=== PATIENT | female | born 1955 | race African-American/Black ===

== ENCOUNTER 2018-06-13 16:25 | Emergency (ER) | payer MEDICAID ==
[~2018-06-13] VITALS: Ht 162.6 cm; Wt 70.3 kg
[2018-06-13 16:45] VITALS: BP 153/56
--- NOTE | 2018-06-13 16:51 | NUR ---
PT AMBULATES BACK TO THE LOBBY WITH DAUGHTER
--- NOTE | 2018-06-13 17:09 | NUR ---
PT LWBS PER ADMITTING
== END 2018-06-13 17:09 | disposition left against medical advice (07) ==
LOC: MED 16:25
DX: M25.572 Pain in left ankle and joints of left foot (principal); Z53.21 Procedure and treatment not carried out due to patient leaving prior to being seen by health care provider

== ENCOUNTER 2018-06-14 12:33 | Emergency (ER) | payer MEDICAID ==
[~2018-06-14] VITALS: Ht 157.5 cm; Wt 68.0 kg
[2018-06-14 12:54] VITALS: BP 152/58
[2018-06-14 15:02] VITALS: BP 152/57
== END 2018-06-14 15:03 | disposition home or self-care (01) ==
LOC: MED 12:33
DX: I83.023 Varicose veins of left lower extremity with ulcer of ankle (principal); L97.329 Non-pressure chronic ulcer of left ankle with unspecified severity; K21.9 Gastro-esophageal reflux disease without esophagitis; I10 Essential (primary) hypertension; F17.210 Nicotine dependence, cigarettes, uncomplicated; Z86.73 Personal history of transient ischemic attack (TIA), and cerebral infarction without residual deficits; Z86.2 Personal history of diseases of the blood and blood-forming organs and certain disorders involving the immune mechanism
CPT/HCPCS: 73610; 90471; 90715; 99283

== ENCOUNTER 2018-06-28 15:51 | Inpatient (IN) | payer MEDICAID ==
[~2018-06-28] VITALS: Ht 165.1 cm; Wt 70.3 kg
[2018-06-28 15:55] VITALS: BP 181/72
[2018-06-28] MEDS ORDERED: NACL 0.9% 1,000 ML IV ONE (17:32)
[2018-06-28] MEDS ORDERED: VANCOMYCIN 1,000 MG in DEXTROSE 5% 250 ML IV ONE (17:35)
[2018-06-28] MEDS ORDERED: VANCOMYCIN 1,000 MG VIAL ONE (18:09)
[2018-06-28 18:10] LABS: BASOPHILS # (AUTO) 0.1 K/uL (0.00-0.22); BASOPHILS % (AUTO) 0.5 % (0.0-2.0); EOSINOPHILS # (AUTO) 0.3 K/uL (0-0.4); EOSINOPHILS % (AUTO) 2.4 % (0.0-4.0); HEMATOCRIT 29.7 % (36-48); HEMOGLOBIN 9.3 g/dL (12.0-16.0); LYMPHOCYTES # (AUTO) 2.7 K/uL (2.5-16.5); LYMPHOCYTES % (AUTO) 21.7 % (20.5-51.1); MEAN CORPUSCULAR HEMOGLOBIN 30 pg (27-31); MEAN CORPUSCULAR HGB CONC 32 g/dL (33-37); MEAN CORPUSCULAR VOLUME 95.1 fL (80-94); MONOCYTES # (AUTO) 0.9 K/uL (0.8-1.0); NEUTROPHILS # (AUTO) 8.5 K/uL (1.8-7.7); NEUTROPHILS % (AUTO) 68.4 % (42.2-75.2); PLATELET COUNT (AUTO) 553 K/uL (140-450); RED BLOOD CELL COUNT(AUTO) 3.12 MIL/uL (4.20-5.40); RED CELL DISTRIBUTION WIDTH 16.1 % (11.6-13.7); WHITE BLOOD COUNT (AUTO) 12.4 K/uL (4.8-10.8)
[2018-06-28 18:29] LABS: ANION GAP 10.1 (8-16); CARBON DIOXIDE 27.2 mmol/L (21-32); CREATININE 1.2 mg/dL (0.6-1.3); POTASSIUM 4.3 mmol/L (3.5-5.1)
[2018-06-28 18:32] LABS: PROTHROMBIN TIME 8.6 secs (10.8-13.4)
[2018-06-28 18:43] LABS: ALBUMIN 3.3 g/dL (3.4-5.0); TOTAL BILIRUBIN 0.3 mg/dL (0.0-1.0)
[2018-06-28 19:12] LABS: APPEARANCE,URINE CLEAR (CLEAR); BILIRUBIN,URINE NEGATIVE (NEGATIVE); BLOOD, URINE TRACE-I (NEGATIVE); COLOR,URINE YELLOW (YELLOW); LEUKOCYTE ESTERASE ,URINE NEGATIVE (NEGATIVE); NITRITE, URINE NEGATIVE (NEGATIVE); UGLUCOSE NEGATIVE (NEGATIVE)
[2018-06-28] MEDS: DEXT 5% /NACL 0.9% 1,000 ML IV SCH ×2 (20:14→23:50)
[2018-06-28] MEDS ORDERED: DOCUSATE SODIUM 100 MG GELCAP PO PRN (20:15)
[2018-06-28] MEDS ORDERED: ONDANSETRON 4 MG/2 ML VIAL IM/IVP PRN (20:15)
[2018-06-28 20:54] LABS: CHOL/HDL RATIO 6.4 (1-4.5); FREE T4 (FREE THYROXINE) 0.84 ng/dL (0.76-1.46); PHOSPHORUS 3.1 mg/dL (2.5-4.9); THYROID STIMULATING HORMONE 2.64 uIU/mL (0.34-3.74)
[2018-06-28 21:00] VITALS: BP 186/57
[2018-06-28 21:07] LABS: BARBITURATE, URINE NEG. ng/ml (NEG <=200); BENZODIAZEPINE, URINE NEG. ng/mL (NEG <=200); CANNABINOID, URINE NEG. ng/mL (NEG <=50); COCAINE, URINE NEG. ng/mL (NEG <=300); OPIATE, URINE NEG. ng/mL (NEG <=2000); PHENCYCLIDINE SCREEN,URINE NEG. ng/mL (NEG <=25)
[2018-06-28] MEDS ORDERED: LISINOPRIL 20 MG TAB PO SCH (21:40)
[2018-06-28] MEDS ORDERED: FUROSEMIDE 100 MG/10 ML VIAL IV SCH (22:05)
[2018-06-28] MEDS ORDERED: methylPREDNISolone SS 125 MG/2 ML VIAL IVP ONE (22:15)
[2018-06-28] MEDS ORDERED: ALBUTEROL SULFATE/IPRATROPIU 3 ML SOL IH PRN (22:15)
[2018-06-28] MEDS ORDERED: ceFAZolin 1,000 MG VIAL ONE (23:44)
[2018-06-29] VITALS: BP 107/50
[2018-06-29] MEDS: ALBUTEROL SULFATE/IPRATROPIU 3 ML SOL IH SCH ×4 (00:25→19:39)
[2018-06-29] MEDS ORDERED: ceFAZolin 1,000 MG VIAL ONE (05:25)
[2018-06-29] MEDS: ACETAMINOPHEN 325 MG TAB PO PRN ×2 (05:29→16:32)
[2018-06-29] MEDS: methylPREDNISolone SS 125 MG/2 ML VIAL IVP SCH ×2 (05:38→13:00)
[2018-06-29] MEDS ORDERED: methylPREDNISolone SS 125 MG/2 ML VIAL ONE (05:42)
[2018-06-29 08:00] VITALS: BP 174/59
[2018-06-29 08:03] LABS: BASOPHILS % (AUTO) 0.3 % (0.0-2.0); HEMATOCRIT 28.7 % (36-48); HEMOGLOBIN 9.3 g/dL (12.0-16.0); LYMPHOCYTES # (AUTO) 0.4 K/uL (2.5-16.5); LYMPHOCYTES % (AUTO) 4.4 % (20.5-51.1); MEAN CORPUSCULAR HEMOGLOBIN 30 pg (27-31); MEAN CORPUSCULAR HGB CONC 33 g/dL (33-37); MEAN CORPUSCULAR VOLUME 93.6 fL (80-94); MONOCYTES % (AUTO) 0.5 % (1.7-9.3); NEUTROPHILS # (AUTO) 8.5 K/uL (1.8-7.7); NEUTROPHILS % (AUTO) 94.8 % (42.2-75.2); PLATELET COUNT (AUTO) 542 K/uL (140-450); RED BLOOD CELL COUNT(AUTO) 3.06 MIL/uL (4.20-5.40); RED CELL DISTRIBUTION WIDTH 16.3 % (11.6-13.7)
[2018-06-29 08:13] LABS: ANION GAP 15.7 (8-16); CARBON DIOXIDE 22.2 mmol/L (21-32); CREATININE 1.1 mg/dL (0.6-1.3); POTASSIUM 3.9 mmol/L (3.5-5.1)
[2018-06-29] MEDS: METOPROLOL 25 MG TAB PO SCH ×2 (08:44→21:56)
[2018-06-29] MEDS: PANTOPRAZOLE 40 MG TABEC PO SCH (08:44)
[2018-06-29] MEDS: ASPIRIN 81 MG TAB.CHEW PO SCH (08:44)
[2018-06-29] MEDS: NICOTINE TRANSD SYS 14 MG/24 HR PATCH TD SCH (08:54)
[2018-06-29] MEDS ORDERED: LISINOPRIL 5 MG TAB PO SCH (09:00)
[2018-06-29 11:12] LABS: MAGNESIUM 2.1 mg/dL (1.8-2.4); PHOSPHORUS 3.2 mg/dL (2.5-4.9)
[2018-06-29 12:00] VITALS: BP 173/56
[2018-06-29] MEDS: DEXT 5% /NACL 0.9% 1,000 ML IV SCH (12:54)
[2018-06-29] MEDS: CEFAZOLIN SODIUM 1 GM/D5W PM 50 ML IV SCH ×2 (13:00→21:57)
[2018-06-29] MEDS ORDERED: LISINOPRIL 20 MG TAB PO SCH (14:30)
[2018-06-29 16:00] VITALS: BP 112/55
[2018-06-29] MEDS: ATORVASTATIN 20 MG TAB PO SCH (16:31)
[2018-06-29] MEDS ORDERED: METOPROLOL 25 MG TAB PO SCH (21:00)
[2018-06-29] MEDS: HYDROcodone/APAP 7.5/325 MG 1 TAB PO PRN (21:48)
[2018-06-29] MEDS: methylPREDNISolone SS 40 MG/ML VIAL IVP SCH (23:06)
[2018-06-29] MEDS ORDERED: methylPREDNISolone SS 40 MG/ML VIAL ONE (23:10)
[2018-06-30] VITALS: BP 160/48
[2018-06-30] MEDS: ALBUTEROL SULFATE/IPRATROPIU 3 ML SOL IH SCH ×4 (01:00→19:13)
[2018-06-30] MEDS: CEFAZOLIN SODIUM 1 GM/D5W PM 50 ML IV SCH ×3 (04:58→21:24)
[2018-06-30] MEDS: methylPREDNISolone SS 40 MG/ML VIAL IVP SCH ×2 (05:05→12:12)
[2018-06-30] MEDS ORDERED: METOPROLOL 25 MG TAB PO ONE (05:25)
[2018-06-30] MEDS ORDERED: DEXTROSE 50% 50 ML SYR IVP PRN (05:45)
[2018-06-30] MEDS: BLOOD GLUCOSE MONITORING 1 DEV DEV FS SCH ×4 (06:12→21:10)
[2018-06-30] MEDS: INSULIN LISPRO SLIDING SCALE 100 UNITS/ML VIAL SUBQ PRN ×4 (06:14→21:12)
[2018-06-30 06:46] LABS: T4 (THYROXINE) 5.3 ug/dL (4.5-12.0)
[2018-06-30] MEDS ORDERED: BLOOD GLUCOSE MONITORING 1 DEV DEV FS SCH (07:30)
[2018-06-30 08:00] VITALS: BP 144/54
[2018-06-30] MEDS: NICOTINE TRANSD SYS 14 MG/24 HR PATCH TD SCH (08:59)
[2018-06-30] MEDS: ASPIRIN 81 MG TAB.CHEW PO SCH (09:00)
[2018-06-30] MEDS ORDERED: LISINOPRIL 5 MG TAB PO SCH (09:00)
[2018-06-30] MEDS: PANTOPRAZOLE 40 MG TABEC PO SCH (09:00)
[2018-06-30] MEDS ORDERED: THERAHONEY GEL 42.5 GM TP SCH (09:00)
[2018-06-30] MEDS: METOPROLOL 25 MG TAB PO SCH ×2 (09:01→16:08)
[2018-06-30] MEDS ORDERED: hydrALAZINE 20 MG/ML VIAL IVP SCH (11:50)
[2018-06-30 12:00] VITALS: BP 180/62
[2018-06-30 12:13] LABS: FOLIC ACID 4.6 ng/mL (>3.0)
[2018-06-30] MEDS ORDERED: LISINOPRIL 20 MG TAB PO SCH (13:18)
[2018-06-30 16:00] VITALS: BP 170/60
[2018-06-30] MEDS: ATORVASTATIN 20 MG TAB PO SCH (16:08)
[2018-06-30] MEDS ORDERED: hydrALAZINE 20 MG/ML VIAL IVP PRN (23:10)
[2018-06-30] MEDS ORDERED: METOPROLOL SUCCINATE 50 MG TABER PO ONE (23:10)
[2018-06-30] MEDS ORDERED: hydrALAZINE 10 MG TAB ONE (23:40)
[2018-07-01 01:00] VITALS: BP 202/69
[2018-07-01] MEDS: HYDROcodone/APAP 7.5/325 MG 1 TAB PO PRN (01:10)
[2018-07-01] MEDS: ALBUTEROL SULFATE/IPRATROPIU 3 ML SOL IH SCH ×2 (01:17→07:00)
[2018-07-01] MEDS: CEFAZOLIN SODIUM 1 GM/D5W PM 50 ML IV SCH (04:52)
[2018-07-01] MEDS: BLOOD GLUCOSE MONITORING 1 DEV DEV FS SCH (05:12)
[2018-07-01 06:55] VITALS: BP 167/65
[2018-07-01] MEDS ORDERED: METOPROLOL 25 MG TAB PO SCH ×3 (07:00→09:00)
== END 2018-07-01 07:40 | disposition left against medical advice (07) | DRG 133 ==
LOC: MED 15:51 → MTU 20:14
PROVIDERS: ADMIT General Practice; ATTEND General Practice
DX: J96.00 Acute respiratory failure, unspecified whether with hypoxia or hypercapnia (principal); I50.41 Acute combined systolic (congestive) and diastolic (congestive) heart failure; I77.2 Rupture of artery; D68.59 Other primary thrombophilia; E44.1 Mild protein-calorie malnutrition; E87.1 Hypo-osmolality and hyponatremia; I73.9 Peripheral vascular disease, unspecified; I11.0 Hypertensive heart disease with heart failure; L97.929 Non-pressure chronic ulcer of unspecified part of left lower leg with unspecified severity; R73.03 Prediabetes; Z53.21 Procedure and treatment not carried out due to patient leaving prior to being seen by health care provider; J44.9 Chronic obstructive pulmonary disease, unspecified; D64.9 Anemia, unspecified; R31.9 Hematuria, unspecified; F17.200 Nicotine dependence, unspecified, uncomplicated; I99.8 Other disorder of circulatory system; F43.9 Reaction to severe stress, unspecified; E78.2 Mixed hyperlipidemia; K21.9 Gastro-esophageal reflux disease without esophagitis; Z68.25 Body mass index [BMI] 25.0-25.9, adult; Z86.73 Personal history of transient ischemic attack (TIA), and cerebral infarction without residual deficits; Z90.49 Acquired absence of other specified parts of digestive tract; Z90.710 Acquired absence of both cervix and uterus; Z98.51 Tubal ligation status; Z83.3 Family history of diabetes mellitus; Z82.3 Family history of stroke; Z71.6 Tobacco abuse counseling
CPT/HCPCS: 36415; 36600; 71045; 71275; 73590; 80048; 80053; 80305; 81003; 82150; 82607; 82728; 82746; 82803; 82948; 83036; 83540; 83605; 83690; 83735; 83880; 84100; 84436; 84439; 84443; 84479; 84484; 85025; 85045; 85379; 85610; 85730; 87040; 87070; 87081; 87086; 87205; 93925; 93970; 94640; 96365; 96366; 99285; J0360; J0690; J1644; J1815; J2920; J2930; J3370; J7042; J7060; J7620; Q0092; Q9967

== ENCOUNTER 2021-11-17 16:20 | Inpatient (IN) | payer MEDICAID, MEDICARE ==
[~2021-11-17] VITALS: Ht 162.6 cm; Wt 64.9 kg
--- NOTE | 2021-11-17 16:21 | NUR ---
DEB ADAMS VIA GURNEY TO BED 02.
[2021-11-17 16:35] VITALS: BP 90/35
--- NOTE | 2021-11-17 16:43 | NUR ---
66 Y/O FEMALE BIBA FROM HOME C/O GENEREAL WEAKNESS S/P LEAVING CLINIC. PER FIRE CLINIC STATED PT HAD LOW BS, GIVEN COOKIES AND APPLESAUCE. ON ARRIVAL TO PT HOME PT SHAKY AND GENERAL WEAKNESS , BS 330 ATTEMPTED TO START AN IV FOR NS BOLUS BUT WERE UNSUCCESSFUL. PT STATES +N/-V. DENIES FEVER/CHILLS. ON ARRIVAL PT BS 238. PT IS A&OX3, GCS15. PMH: DM, HTN NKA
[2021-11-17] MEDS ORDERED: ONDANSETRON 4 MG/2 ML VIAL IVP ONE (16:45)
[2021-11-17] MEDS ORDERED: NACL 0.9% 1,000 ML IV SCH (16:45)
[2021-11-17] MEDS ORDERED: cefTRIAXone 1,000 MG in DEXT 5% MINI-BAG PLUS 50 ML IV ONE (16:45)
--- NOTE | 2021-11-17 16:56 | NUR ---
SENIOR MARKETING ASSOCIATE AT PT BEDSIDE.
--- NOTE | 2021-11-17 16:56 | NUR ---
DR. VINES AT PT BEDSIDE FOR FURTHER EVALUATION.
--- NOTE | 2021-11-17 17:00 | NUR ---
LANNY DICKENS GAVE TO RN COMPLIANCE AT PT BEDSIDE.
[2021-11-17] MEDS ORDERED: cefTRIAXone 1,000 MG VIAL ONE (17:15)
[2021-11-17 17:18] LABS: BASOPHILS % (AUTO) 0.4 % (0.0-2.0); EOSINOPHILS % (AUTO) 0.1 % (0.0-4.0); HEMATOCRIT 25.2 % (36-48); HEMOGLOBIN 8.1 g/dL (12.0-16.0); LYMPHOCYTES # (AUTO) 0.3 K/uL (2.5-16.5); LYMPHOCYTES % (AUTO) 4.1 % (20.5-51.1); MEAN CORPUSCULAR HEMOGLOBIN 30 pg (27-31); MEAN CORPUSCULAR HGB CONC 32 g/dL (33-37); MEAN CORPUSCULAR VOLUME 94.8 fL (80-94); MONOCYTES # (AUTO) 0.5 K/uL (0.8-1.0); MONOCYTES % (AUTO) 5.9 % (1.7-9.3); NEUTROPHILS # (AUTO) 7.1 K/uL (1.8-7.7); NEUTROPHILS % (AUTO) 89.5 % (42.2-75.2); PLATELET COUNT (AUTO) 461 K/uL (140-450); RED BLOOD CELL COUNT(AUTO) 2.66 MIL/uL (4.20-5.40); RED CELL DISTRIBUTION WIDTH 15.2 % (11.6-13.7); WHITE BLOOD COUNT (AUTO) 7.9 K/uL (4.8-10.8)
--- NOTE | 2021-11-17 17:35 | NUR ---
PT TAKEN TO CT VIA RVINH.
[2021-11-17 17:40] LABS: ALBUMIN 3.5 g/dL (3.4-5.0); POTASSIUM 3.3 mmol/L (3.5-5.1); TOTAL BILIRUBIN 0.2 mg/dL (0.0-1.0)
[2021-11-17 17:46] LABS: ANION GAP 17.9 (8-16); CARBON DIOXIDE 16.4 mmol/L (21-32)
--- NOTE | 2021-11-17 18:20 | NUR ---
Patient will be admitted to care of DR. CUELLAR. Admited to TELE. Will go to room 125A. Belongings list completed. Report to GEORGI TAFOYA AT PT BEDSIDE.
--- NOTE | 2021-11-17 18:31 | NUR ---
PT SPO2 88% ON RA, PLACED ON 2LNC, SPO2 100%. WILL CONTINUE TO MONITOR.
[2021-11-17] MEDS ORDERED: DOCUSATE SODIUM 100 MG GELCAP PO PRN (18:35)
[2021-11-17] MEDS ORDERED: DEXTROSE 50% 50 ML SYR IVP PRN (18:35)
[2021-11-17] MEDS ORDERED: HYDROcodone/APAP 7.5/325 MG 1 TAB PO PRN (18:35)
[2021-11-17] MEDS ORDERED: ZOLPIDEM 5 MG TAB PO PRN (18:35)
[2021-11-17] MEDS ORDERED: ACETAMINOPHEN 325 MG TAB PO PRN (18:35)
[2021-11-17] MEDS ORDERED: INSULIN LISPRO SLIDING SCALE 100 UNITS/ML VIAL SUBQ PRN (18:35)
[2021-11-17] MEDS ORDERED: guaiFENesin DM 200/20 MG-10 ML 10 ML UDC PO PRN (18:35)
[2021-11-17] MEDS ORDERED: ONDANSETRON 4 MG/2 ML VIAL IM/IVP PRN (18:35)
[2021-11-17] MEDS ORDERED: POTASSIUM CHLORIDE 10 MEQ TABER PO PRN (18:35)
[2021-11-17] MEDS ORDERED: ASPIRIN 325 MG TAB PO SCH (19:00)
[2021-11-17] MEDS ORDERED: POTASSIUM CHLORIDE 10 MEQ TABER PO SCH (19:00)
--- NOTE | 2021-11-17 19:00 | NUR ---
RECEIVED PATIENT ENDORSEMENT FROM DAY SHIFT NURSE FOR CONTINUITY OF CARE. PATIENT ADMITTED TO THE UNIT AT 1900. AWAKE, ALERT AND CONFUSED, SHE IS VERBALLY RESPONSIVE. GENERAL BODY WEAKNESS PRESENT. PATIENT TRANSPORTED VIA GURNEY. PATIENT IS VERBALLY RESPONSIVE.
--- NOTE | 2021-11-17 19:03 | NUR ---
BEDSIDE REPORT GIVEN TO LOTTIE GRAVES.
[2021-11-17 19:13] LABS: PROTHROMBIN TIME 10.7 secs (10.8-13.4)
[2021-11-17 19:18] LABS: APPEARANCE,URINE CLEAR (CLEAR); BILIRUBIN,URINE 1+ (NEGATIVE); BLOOD, URINE NEGATIVE (NEGATIVE); COLOR,URINE YELLOW (YELLOW); LEUKOCYTE ESTERASE ,URINE NEGATIVE (NEGATIVE); NITRITE, URINE NEGATIVE (NEGATIVE); PH,URINE 5.5 (5.0-9.0); UGLUCOSE NEGATIVE (NEGATIVE)
--- NOTE | 2021-11-17 19:20 | NUR ---
RECEIVED PATIENT AT 1905 PATIENT IS AOX4 VITALS STABLE: 135/61 HR68 100% ON ROOM AIR, T97.7, RR18 ORIENTED TO ROOM, CALL LIGHT WITHIN REACH WILL ENDORSE TO NIGHT RN.
[2021-11-17 19:31] LABS: CHOL/HDL RATIO 2.2 (1-4.5); FREE T4 (FREE THYROXINE) 0.94 ng/dL (0.76-1.46); MAGNESIUM 2.6 mg/dL (1.8-2.4); PHOSPHORUS 4.4 mg/dL (2.5-4.9)
[2021-11-17 19:54] LABS: THYROID STIMULATING HORMONE 4.36 uIU/mL (0.34-3.74)
[2021-11-17] MEDS: NACL 0.9% 1,000 ML IV SCH (20:55)
[2021-11-17] MEDS: BLOOD GLUCOSE MONITORING 1 DEV DEV FS SCH (21:20)
--- NOTE | 2021-11-17 22:00 | NUR ---
PATIENT BLOOD SUGAR IS 84.
--- NOTE | 2021-11-18 02:13 | NUR ---
PER LAB STAFF THEY SAVED THE URINE SPECIMEN - PER LAB THEY WILL DO URINE DRUG TEST FROM SAVED URINE SPECIMEN . - WILL ENDORSE .
[2021-11-18 02:38] LABS: BARBITURATE, URINE NEGATIVE ng/ml (NEG <=200); BENZODIAZEPINE, URINE NEGATIVE ng/mL (NEG <=200); CANNABINOID, URINE NEGATIVE ng/mL (NEG <=50); COCAINE, URINE NEGATIVE ng/mL (NEG <=300); OPIATE, URINE NEGATIVE ng/mL (NEG <=2000); PHENCYCLIDINE SCREEN,URINE NEGATIVE ng/mL (NEG <=25)
[2021-11-18 04:00] VITALS: BP 118/54
[2021-11-18 05:39] LABS: ANION GAP 10.5 (8-16); CREATININE 2.2 mg/dL (0.6-1.3); POTASSIUM 4.5 mmol/L (3.5-5.1)
[2021-11-18 06:22] LABS: BASOPHILS % (AUTO) 0.5 % (0.0-2.0); EOSINOPHILS # (AUTO) 0.1 K/uL (0-0.4); EOSINOPHILS % (AUTO) 1.4 % (0.0-4.0); HEMATOCRIT 21.6 % (36-48); LYMPHOCYTES # (AUTO) 1.4 K/uL (2.5-16.5); LYMPHOCYTES % (AUTO) 18.9 % (20.5-51.1); MEAN CORPUSCULAR HEMOGLOBIN 30 pg (27-31); MEAN CORPUSCULAR HGB CONC 33 g/dL (33-37); MEAN CORPUSCULAR VOLUME 92.7 fL (80-94); MONOCYTES # (AUTO) 0.6 K/uL (0.8-1.0); MONOCYTES % (AUTO) 8.3 % (1.7-9.3); NEUTROPHILS # (AUTO) 5.2 K/uL (1.8-7.7); NEUTROPHILS % (AUTO) 70.9 % (42.2-75.2); PLATELET COUNT (AUTO) 417 K/uL (140-450); RED BLOOD CELL COUNT(AUTO) 2.33 MIL/uL (4.20-5.40); RED CELL DISTRIBUTION WIDTH 14.7 % (11.6-13.7); WHITE BLOOD COUNT (AUTO) 7.3 K/uL (4.8-10.8)
--- NOTE | 2021-11-18 06:43 | NUR ---
PATIENT HAS BEEN SCREENED AND CATEGORIZED LOW NUTRITION RISK. PATIENT WILL BE SEEN WITHIN 7 DAYS OF ADMISSION. 11/24/[address] Addendum: 11/18/21 at [address] REFERRAL RECEIVED NOT APPLICABLE
--- NOTE | 2021-11-18 06:50 | NUR ---
PATIENT BLOOD SUGAR IS 83.
--- NOTE | 2021-11-18 07:20 | NUR ---
PATIENT IS ASLEEP BUT AROUSABLE ON STIMULI. PATIENT IS ON STABLE CONDITION. IV SALINE LOCK IS ON RIGHT AC, INTACT AND PATENT. NORMAL SALINE IS INFUSING WELL, NO SIGN/SYMPTOM OF INFECTION ON IV SITE. ENDORSED TO DAY SHIFT NURSE FOR CONTINUITY OF CARE. PATIENT REMOVED O2 NASAL CANNULA, O2 SAT STABLE AT 98-99% AT ROOM AIR.
--- NOTE | 2021-11-18 07:30 | NUR ---
RECEIVED BEDSIDE REPORT FROM NIGHT RN FOR CONTINUITY OF CARE. PT SUPINE IN THE BED, EYES CLOSED, AROUSABLE TO NAME, AAOX2. ON ROOM AIR, SPO2 AT 98%. SR ON TELE MONITOR. S1&2 HEART SOUNDS. INCONTINENT OF BOWEL AND BLADDER. BOWEL SOUNDS ACTIVE. GENERALIZED WEAKNESS. SKIN INTACT. 24G IV TO RAC INFUSING NS AT 60 ML/HR. STANDARD PRECAUTIONS IN PLACE. INITIAL ASSESSMENT COMPLETE, WILL CONTINUE TO CLOSELY MONITOR.
--- NOTE | 2021-11-18 07:35 | NUR ---
SEEN AND EXAMINED BY DR CUELLAR.
[2021-11-18 08:08] LABS: T4 (THYROXINE) 7.5 ug/dL (4.5-12.0)
[2021-11-18] MEDS: BLOOD GLUCOSE MONITORING 1 DEV DEV FS SCH ×4 (08:15→21:19)
[2021-11-18] MEDS ORDERED: PANTOPRAZOLE 40 MG TABEC PO SCH (09:00)
[2021-11-18] MEDS ORDERED: ECOTRIN 81 MG TABEC PO SCH (09:00)
--- NOTE | 2021-11-18 11:08 | NUR ---
DC PLANN[age] YRS OLD FEMALE PATIENT WAS ADMITTED FROM HOME WITH A DX OF WEAKNESS ELEVATED TROPONIN. PATIENT HAS A HX OF DM AND HTN. TROPONIN ON ADMISSION 55 , 59 , H/H 7.0/21.6 CXR SHOWED NO ACUTE CARDIOPULMONARY DISEASE. RAPID COVID TEST NEGATIVE. HEAD CT NO ACUTE INTRACRANIAL PROCESS. URINE AND BLOOD CULTURE PENDING. ORDERED 1 UNIT PRBC. ADMINISTERED IVF, AND CONTINUED HOME MEDS. CONSULTED WITH GI, CARDIO AND NEPHRO. DC PLAN TO GO HOME WHEN STABLE CM TO FOLLOW. Addendum: 11/21/21 at 1222 by Ximena Gallagher RN DC PLANNING: RECEIVED 1 UNIT PRBC H/H 9.8/30.8 EGD AND COLONOSCOPY PERFORMED BY DR CLARK FINDING DIVERTICULOSIS OF THE LEFT COLON , SEEN BY NEPHRO AND CARDIO RECOMMENDED TO CONTINUE CURRENT MEDICATION. DC PLAN TO GO HOME WHEN STABLE CM TO FOLLOW
[2021-11-18] MEDS: NACL 0.9% 1,000 ML IV SCH ×2 (11:15→21:47)
--- NOTE | 2021-11-18 12:28 | NUR ---
SEEN AND EXAMINED BY DR SHOEMAKER.
--- NOTE | 2021-11-18 12:49 | NUR ---
RECEIVED CALL FROM PT DAUGHTER, MS FOWLER. UNABLE TO GIVE INFORMATION PER HIPAA POLICY. THERE IS ONLY YESSICA LAWSON ON THE PERSON TO NOTIFY LIST. EDUCATED MS FOWLER REGARDING HIPAA POLICY. SHE STATED SHE WILL CALL YESSICA TO RELEASE INFORMATION TO HER.
--- NOTE | 2021-11-18 13:19 | NUR ---
SEEN AND EXAMINED BY DR DODSON.
--- NOTE | 2021-11-18 14:00 | NUR ---
INITIATED 20G IV TO LAC IN PREPARATION FOR BLOOD TRANSFUSION.
--- NOTE | 2021-11-18 14:50 | NUR ---
WITNESS WITH GUDELIA TAFOYA FOR BLOOD TRANSFUSION.
--- NOTE | 2021-11-18 15:00 | NUR ---
PRETRANSFUSION VSS. PT EDUCATED ON TRANSFUSION PROCEDURE AND ADVERSE REACTION. WILL CONTINUE TO CLOSELY MONITOR AT BEDSIDE.
--- NOTE | 2021-11-18 15:15 | NUR ---
AFTER 15 MINUTES, VSS, NO S/S ADVERSE REACTION. WILL CONTINUE TO CLOSELY MONITOR AT BEDSIDE.
--- NOTE | 2021-11-18 19:15 | NUR ---
RECEIVED BEDSIDE REPORT FROM AM NURSE. PATIENT IS RESTING COMFORTABLY IN BED ON ROOM AIR. NO S/S OF RESPIRATORY DISTRESS. BREATHING EVEN UNLABORED. NO COMPLAINTS OF PAIN. IVF NS INFUSING AT 60 ML/HR. ALL SAFETY PRECAUTIONS ARE I8N PLACE. CALL LIGHT WITHIN REACH. WILL CONTINUE TO MONITOR PT.
[2021-11-18 20:00] VITALS: BP 128/58
--- NOTE | 2021-11-18 21:19 | NUR ---
BLOOD SUGAR CHECKED WAS 94, NO INSULIN COVERAGE GIVEN.
[2021-11-18] MEDS: PANTOPRAZOLE 40 MG INJ VIAL IVP SCH (21:20)
[2021-11-18] MEDS: LACTULOSE 20 GM/30 ML UDC PO SCH (21:20)
--- NOTE | 2021-11-18 21:20 | NUR ---
SCHEDULED MEDICATIONS ADMINISTERED ORDERED.
[2021-11-19] VITALS: BP 136/52
[2021-11-19 04:00] VITALS: BP 144/55
--- NOTE | 2021-11-19 04:02 | NUR ---
PATIENT CHANGED, CLEANED AND REPOSITIONED. CALL LIGHT WITHIN REACH. PT IS STABLE.
[2021-11-19 05:16] LABS: ANION GAP 12.9 (8-16); CREATININE 1.5 mg/dL (0.6-1.3); POTASSIUM 3.9 mmol/L (3.5-5.1)
[2021-11-19 05:20] LABS: BASOPHILS # (AUTO) 0.1 K/uL (0.00-0.22); BASOPHILS % (AUTO) 0.9 % (0.0-2.0); EOSINOPHILS # (AUTO) 0.3 K/uL (0-0.4); EOSINOPHILS % (AUTO) 4.9 % (0.0-4.0); HEMATOCRIT 26.9 % (36-48); HEMOGLOBIN 8.9 g/dL (12.0-16.0); MEAN CORPUSCULAR HEMOGLOBIN 30 pg (27-31); MEAN CORPUSCULAR HGB CONC 33 g/dL (33-37); MEAN CORPUSCULAR VOLUME 90.4 fL (80-94); MONOCYTES # (AUTO) 0.5 K/uL (0.8-1.0); MONOCYTES % (AUTO) 6.9 % (1.7-9.3); NEUTROPHILS % (AUTO) 72.3 % (42.2-75.2); PLATELET COUNT (AUTO) 418 K/uL (140-450); RED BLOOD CELL COUNT(AUTO) 2.98 MIL/uL (4.20-5.40); RED CELL DISTRIBUTION WIDTH 15.4 % (11.6-13.7); WHITE BLOOD COUNT (AUTO) 6.9 K/uL (4.8-10.8)
[2021-11-19] MEDS: BLOOD GLUCOSE MONITORING 1 DEV DEV FS SCH ×4 (06:31→21:16)
--- NOTE | 2021-11-19 06:32 | NUR ---
BLOOD SUGAR CHECKED 73 NO INSULIN COVERAGE NEEDED.
--- NOTE | 2021-11-19 07:11 | NUR ---
BEDSIDE ENDORSEMENT GIVEN TO AM NURSE FOR CONTINUITY OF CARE. PATIENT IS STABLE
[2021-11-19 08:00] VITALS: BP 138/53
--- NOTE | 2021-11-19 08:09 | NUR ---
RECEIVED PATIENT, AOX2, CONFUSED TO DATE/TIME. SINUS RHYTHM ON ASSISTANT BUYER, RESPIRATIONS EVEN AND UNLABORED ON ROOM AIR. VITAL SIGNS STABLE. PATIENT DENIES PAIN AT THIS TIME, TOLERATING BREAKFAST WELL WITH NO NAUSEA/VOMITING. IV FLUIDS INFUSING. WILL CONTINUE TO MONITOR.
[2021-11-19] MEDS: PANTOPRAZOLE 40 MG INJ VIAL IVP SCH ×2 (08:56→20:54)
[2021-11-19] MEDS: LACTULOSE 20 GM/30 ML UDC PO SCH ×3 (08:56→20:57)
[2021-11-19] MEDS: NACL 0.9% 1,000 ML IV SCH (08:57)
[2021-11-19] MEDS: ATORVASTATIN 20 MG TAB PO SCH (09:12)
--- NOTE | 2021-11-19 09:32 | NUR ---
PT. WITH LOW STACEY SCALE AT MODERATE TO HIGH RISK, CONTINUE TO FOLLOW PRESSURE INJURY PREVENTION INTERVENTIONS. -POSITIONING: TURN AND REPOSITION PATIENT Q 2H OR SOONER USE PILLOWS TO KEEP BONY PROMINENCES FROM DIRECT CONTACT WITH SURFACES USE REPOSITIONING WEDGES TO PROVIDE 30-DEGREE ANGLE FOR SIDE LYING POSITIONS OFFLOADING OR FOAM DRESSING TO ALL TUBING TO PREVENT MEDICAL DEVICES RELATED PRESSURE INJURY -RE-EVALUATING AND MANAGING INCONTINENCE MONITOR SKIN CONDITION DURING POSITION CHANGE DO NOT MASSAGE REDNESS, BONY PROMINENCES FREQUENT MADHU-CARE AND PROVIDE BARRIER CREAMS PRN IF SOILING MOISTURE CONTROL BY OFFER BED MOODY/URINAL /ABSORBENT PAD TO WICK AND HOLD MOISTURE KEEP SKIN DRY AND PROTECT FROM FRICTION -MANAGE FRICTION/SHEAR/MOBILITY KEEP HOB AT THE LOWEST LEVEL OF ELEVATION NO MORE THAN 30 DEGREE UNLESS OTHERWISE CONTRAINDICATED USE LIFT SHEET OR TRANSFER DEVICE TO MOVE PATIENT AND PREVENT LATERAL SHEER. PROTECT HEELS, ELBOWS BONY PROMINENCES WITH SKIN BERRIES OR FOAM DRESSING IF EXPOSED TO FRICTION OFFLOAD BILATERAL HEELS BY PLACING PILLOWS UNDER CALVES AT ALL TIMES, UNLESS OTHERWISE CONTRAINDICATED -PRESSURE REDISTRIBUTION SURFACE THERAPY ELSIE ISOFLEX MATTRESS -NUTRITION: PLEASE FOLLOW RD RECOMMENDATIONS AND OFFER NUTRITION SUPPLEMENTS IF ORDERED. PLEASE CONTACT WOUND CARE NURSE FOR ANY QUESTION AND CHANGE OF WOUND CONDITION.
--- NOTE | 2021-11-19 10:30 | NUR ---
RECEIVED CALL FROM LAB, MRSA NARES POSITIVE. NOTIFIED DR. CUELLAR AND MRSA PROTOCOL STARTED. PLACED ON CONTACT ISOLATION.
--- NOTE | 2021-11-19 11:44 | NUR ---
OCCULT BLOOD POSITIVE. NOTIFIED DR. CUELLAR AND DISCHARGE WILL BE HELD. NOTIFIED DR. CLARK, AWAITING RESPONSE. UPDATED SISTER IN LAW, YESSICA ON PLAN OF CARE.
[2021-11-19 12:00] VITALS: BP 141/50
[2021-11-19 12:08] LABS: FOLIC ACID 17.8 ng/mL (>3.0)
--- NOTE | 2021-11-19 12:16 | NUR ---
PHYSICAL THERAPY CO-SIGN The Physical Therapy Progress Notes documented by Director Of Materials have been reviewed. Reviewed/Co-Signed by: Kelsy Ruggiero Documentation Done by: YONNY PAGE PTA Addendum: 11/19/21 at 1216 by Kelsy Ruggiero PT Amended: Links added.
[2021-11-19] MEDS: CHLORHEXADINE GLUC 2% CLOTH TP SCH (13:13)
[2021-11-19] MEDS: MUPIROCIN CA NASAL 2% 1GM TUBE NS SCH (13:13)
[2021-11-19 16:00] VITALS: BP 132/49
--- NOTE | 2021-11-19 16:33 | NUR ---
PATIENT WAS SEEN BY DR. CLARK, PLAN FOR EGD/COLONOSCOPY TOMORROW.
[2021-11-19] MEDS ORDERED: MAGNESIUM CITRATE 300 ML BTL PO SCH ×2 (17:00→21:00)
[2021-11-19] MEDS: SENNA 8.6 MG TAB PO SCH ×2 (17:14→20:56)
--- NOTE | 2021-11-19 17:25 | NUR ---
PATIENT IS ALERT TO NAME, PLACE, DATE, AND SITUATION CURRENTLY. WAS ABLE TO SIGN CONSENT FOR EGD/COLONOSCOPY. NOTIFIED [id number] YESSICA OF PLAN OF CARE. BOWEL PREP STARTED.
--- NOTE | 2021-11-19 18:53 | NUR ---
PATIENT TOLERATED CLEAR LIQUID DIET WELL, ATE 100%. HAD 1X LARGE LOOSE BOWEL MOVEMENT. CLEANED AND REPOSITIONED, CALL LIGHT WITHIN REACH. WILL ENDORSE TO ICT HELP DESK TECHNICIAN RN.
--- NOTE | 2021-11-19 19:10 | NUR ---
RECEIVED PATIENT AWAKE RESTING COMFORTABLY. IVF NS INFUSING AT 6O ML/HR. NO ACUTE DISTRESS NOTED RESPIRATION REGULAR NON LABORED. ON ROOM AIR. SAFETY PRECAUTIONS ARE IN PLACE CALL LIGHT WITHIN REACH. NO COMPLAINTS OF PAIN. WILL CONTINUE TO MONITOR PT.
[2021-11-19 20:00] VITALS: BP 130/49
--- NOTE | 2021-11-19 20:54 | NUR ---
Scheduled medications administered as ordered.
[2021-11-19] MEDS ORDERED: SUPREP BOWEL PREP KIT 354 ML SOLN.RECON PO ONE (21:00)
--- NOTE | 2021-11-19 23:40 | NUR ---
URINE COLLECTED SENT TO LAB.
[2021-11-20] VITALS: BP 122/49
--- NOTE | 2021-11-20 00:12 | NUR ---
PATIENT CLEANED, CHANGED AND REPOSITIONED.
[2021-11-20 03:58] LABS: APPEARANCE,URINE CLEAR (CLEAR); BILIRUBIN,URINE 2+ (NEGATIVE); BLOOD, URINE 3+ (NEGATIVE); COLOR,URINE ORANGE (YELLOW); LEUKOCYTE ESTERASE ,URINE TRACE (NEGATIVE); NITRITE, URINE NEGATIVE (NEGATIVE); UGLUCOSE NEGATIVE (NEGATIVE)
[2021-11-20 04:00] VITALS: BP 139/54
[2021-11-20 04:10] LABS: RBC,URINE 0-5 /HPF (0-5); WBC,URINE 0-5 /HPF (0-5)
[2021-11-20 05:05] LABS: ANION GAP 13.6 (8-16); CARBON DIOXIDE 16.4 mmol/L (21-32); CREATININE 1.5 mg/dL (0.6-1.3)
[2021-11-20 05:16] LABS: BASOPHILS # (AUTO) 0.1 K/uL (0.00-0.22); BASOPHILS % (AUTO) 1.2 % (0.0-2.0); EOSINOPHILS # (AUTO) 0.3 K/uL (0-0.4); EOSINOPHILS % (AUTO) 3.3 % (0.0-4.0); HEMATOCRIT 32.1 % (36-48); HEMOGLOBIN 10.3 g/dL (12.0-16.0); LYMPHOCYTES # (AUTO) 1.3 K/uL (2.5-16.5); MEAN CORPUSCULAR HEMOGLOBIN 30 pg (27-31); MEAN CORPUSCULAR HGB CONC 32 g/dL (33-37); MEAN CORPUSCULAR VOLUME 92.1 fL (80-94); MONOCYTES # (AUTO) 0.4 K/uL (0.8-1.0); MONOCYTES % (AUTO) 4.6 % (1.7-9.3); NEUTROPHILS # (AUTO) 6.4 K/uL (1.8-7.7); NEUTROPHILS % (AUTO) 75.9 % (42.2-75.2); PLATELET COUNT (AUTO) 462 K/uL (140-450); RED BLOOD CELL COUNT(AUTO) 3.49 MIL/uL (4.20-5.40); RED CELL DISTRIBUTION WIDTH 15.8 % (11.6-13.7); WHITE BLOOD COUNT (AUTO) 8.4 K/uL (4.8-10.8)
[2021-11-20] MEDS: BLOOD GLUCOSE MONITORING 1 DEV DEV FS SCH ×4 (07:13→21:05)
--- NOTE | 2021-11-20 07:13 | NUR ---
BLOOD SUGAR WAS 80, NO INSULIN COVERAGE NEEDED.
[2021-11-20] MEDS ORDERED: SENNA 8.6 MG TAB PO SCH (07:30)
--- NOTE | 2021-11-20 07:35 | NUR ---
ENDORSED TO AM NURSE FOR CONTINUITY OF CARE. PT IS STABLE.
[2021-11-20 08:00] VITALS: BP 141/42
[2021-11-20] MEDS: ATORVASTATIN 20 MG TAB PO SCH (08:25)
[2021-11-20] MEDS: LACTULOSE 20 GM/30 ML UDC PO SCH ×2 (08:25→10:28)
[2021-11-20] MEDS: PANTOPRAZOLE 40 MG INJ VIAL IVP SCH (08:34)
[2021-11-20] MEDS ORDERED: BOWEL EVACUANT DRINK 4,000 ML PDS PO SCH (09:30)
--- NOTE | 2021-11-20 10:36 | NUR ---
PATIENT CAM FROM THE BATHROOM AND HAD SEMI LIQUID STOOLS WITH BROWN PARTICLES.DR CLARK CALLED AND UPDATED RE PATIENT STATUS. GOLYTELY 1000 ML GIVEN TO THE PATIENT AND TAKING IT INSTRUCTED.WILL CONT TO MONITOR PATIENT BOWEL PREP.PATIENT STATED UNDERSTANDING.
--- NOTE | 2021-11-20 11:46 | NUR ---
DR CLARK HERE TO SEE PATIENT AND MADE AWARE PATIENT HAD LOOSE LIQUID BROWNISH STOOLS.
[2021-11-20 12:00] VITALS: BP 139/50
[2021-11-20] MEDS ORDERED: diphenhydrAMINE 50 MG/ML VIAL ONE (12:01)
[2021-11-20] MEDS ORDERED: fentaNYL citrate 0.05 MG/ML VIAL ONE (12:02)
[2021-11-20] MEDS ORDERED: MIDAZOLAM 5 MG/5 ML VIAL ONE (12:02)
[2021-11-20] MEDS: CHLORHEXADINE GLUC 2% CLOTH TP SCH (13:00)
[2021-11-20] MEDS: MUPIROCIN CA NASAL 2% 1GM TUBE NS SCH (13:00)
[2021-11-20] MEDS ORDERED: MIDAZOLAM 2 MG/2 ML VIAL IVP ONE (13:25)
[2021-11-20] MEDS ORDERED: fentaNYL citrate 0.05 MG/ML VIAL IVP ONE (13:25)
[2021-11-20 13:44] LABS: TOTAL PROTEIN URINE 19.4 MG/DL
[2021-11-20 16:00] VITALS: BP 119/54
--- NOTE | 2021-11-20 19:35 | NUR ---
RECEIVED PT FROM AM NURSE FOR CONTINUITY OF CARE. PT IS STABLE
[2021-11-20 20:00] VITALS: BP 127/58
--- NOTE | 2021-11-20 21:30 | NUR ---
ALL MEDICATIONS GIVEN,NO ADVERSE REACTIONS NOTED
[2021-11-21] VITALS: BP 142/44
--- NOTE | 2021-11-21 03:00 | NUR ---
PATIENT ASLEEP,BREATHING EVEN AND UNLABORED,NO DISTRESS NOTED
[2021-11-21 04:00] VITALS: BP 158/74
[2021-11-21 05:53] LABS: BASOPHILS # (AUTO) 0.1 K/uL (0.00-0.22); BASOPHILS % (AUTO) 1.3 % (0.0-2.0); EOSINOPHILS # (AUTO) 0.5 K/uL (0-0.4); EOSINOPHILS % (AUTO) 6.7 % (0.0-4.0); HEMATOCRIT 30.8 % (36-48); HEMOGLOBIN 9.8 g/dL (12.0-16.0); LYMPHOCYTES # (AUTO) 1.5 K/uL (2.5-16.5); LYMPHOCYTES % (AUTO) 20.1 % (20.5-51.1); MEAN CORPUSCULAR HEMOGLOBIN 29 pg (27-31); MEAN CORPUSCULAR HGB CONC 32 g/dL (33-37); MEAN CORPUSCULAR VOLUME 91.5 fL (80-94); MONOCYTES # (AUTO) 0.5 K/uL (0.8-1.0); MONOCYTES % (AUTO) 6.3 % (1.7-9.3); NEUTROPHILS # (AUTO) 4.8 K/uL (1.8-7.7); NEUTROPHILS % (AUTO) 65.6 % (42.2-75.2); PLATELET COUNT (AUTO) 486 K/uL (140-450); RED BLOOD CELL COUNT(AUTO) 3.37 MIL/uL (4.20-5.40); RED CELL DISTRIBUTION WIDTH 15.3 % (11.6-13.7); WHITE BLOOD COUNT (AUTO) 7.3 K/uL (4.8-10.8)
[2021-11-21 06:16] LABS: ANION GAP 15.6 (8-16); CREATININE 1.4 mg/dL (0.6-1.3); POTASSIUM 4.6 mmol/L (3.5-5.1)
[2021-11-21] MEDS: BLOOD GLUCOSE MONITORING 1 DEV DEV FS SCH ×2 (06:24→11:30)
--- NOTE | 2021-11-21 07:30 | NUR ---
ENDORSED PT TO AM NURSE FOR CONTINUITY OF CARE. PT IS STABLE
[2021-11-21] MEDS ORDERED: LACTULOSE 20 GM/30 ML UDC PO SCH (09:00)
[2021-11-21] MEDS: ATORVASTATIN 20 MG TAB PO SCH (09:04)
[2021-11-21 09:14] VITALS: BP 144/46
[2021-11-21] MEDS ORDERED: amLODIPine 5 MG TAB PO SCH (11:50)
[2021-11-21 12:00] VITALS: BP 148/32
[2021-11-21] MEDS: MUPIROCIN CA NASAL 2% 1GM TUBE NS SCH (12:25)
[2021-11-21] MEDS: CHLORHEXADINE GLUC 2% CLOTH TP SCH (12:26)
[2021-11-21] MEDS ORDERED: FER325 PO (13:03)
[2021-11-21] MEDS ORDERED: AMLO-3 PO (13:03)
[2021-11-21] MEDS ORDERED: LACT10SO11 PO (13:03)
[2021-11-21] MEDS ORDERED: ATOR10TA PO (13:07)
[2021-11-21 14:09] VITALS: BP 148/32
--- NOTE | 2021-11-21 14:51 | NUR ---
ADVISED FLUID RESTRICTION 1000 ML/DAY. PATIENT STATED UNDERSTANING.
--- NOTE | 2021-11-21 16:11 | NUR ---
DISCHARGED PATIENT HOME IN STABLE CONDITION WITH FAMILY ACCOMPANIED BY [employer] CHOCOLATE DIPPER TO THE CAR PER WHEELCHAIR.
[2021-11-21] MEDS ORDERED: FERROUS SULFATE 325 MG TABEC PO SCH (17:00)
== END 2021-11-21 16:26 | disposition home or self-care (01) | DRG 420 ==
LOC: MED 16:20 → MMU 18:20
PROVIDERS: ADMIT Family Medicine; ATTEND Family Medicine
PROC: 30233N1 Transfusion of Nonautologous Red Blood Cells into Peripheral Vein, Percutaneous Approach (ICD-10-PCS; 2021-11-18)
PROC: 0DJ08ZZ Inspection of Upper Intestinal Tract, Via Natural or Artificial Opening Endoscopic (ICD-10-PCS; principal; 2021-11-20 12:00)
PROC: 0DJD8ZZ Inspection of Lower Intestinal Tract, Via Natural or Artificial Opening Endoscopic (ICD-10-PCS; 2021-11-20 12:00)
DX: E11.649 Type 2 diabetes mellitus with hypoglycemia without coma (principal); N17.0 Acute kidney failure with tubular necrosis; I21.A1 Myocardial infarction type 2; G93.41 Metabolic encephalopathy; E87.1 Hypo-osmolality and hyponatremia; D50.9 Iron deficiency anemia, unspecified; E11.22 Type 2 diabetes mellitus with diabetic chronic kidney disease; E86.0 Dehydration; E87.6 Hypokalemia; K29.70 Gastritis, unspecified, without bleeding; K57.30 Diverticulosis of large intestine without perforation or abscess without bleeding; N18.31 Chronic kidney disease, stage 3a; I12.9 Hypertensive chronic kidney disease with stage 1 through stage 4 chronic kidney disease, or unspecified chronic kidney disease; Z20.822 Contact with and (suspected) exposure to COVID-19; K21.9 Gastro-esophageal reflux disease without esophagitis; Z86.73 Personal history of transient ischemic attack (TIA), and cerebral infarction without residual deficits; Z90.49 Acquired absence of other specified parts of digestive tract; Z79.899 Other long term (current) drug therapy
CPT/HCPCS: 36415; 36430; 36600; 70450; 71045; 76770; 80048; 80053; 80305; 81001; 81003; 82150; 82272; 82570; 82607; 82728; 82746; 82803; 82948; 83036; 83540; 83690; 83735; 83880; 84100; 84156; 84300; 84436; 84439; 84443; 84479; 84484; 85025; 85045; 85610; 85730; 86677; 86886; 86900; 86901; 86920; 87040; 87081; 87086; 96365; 96375; 97110; 97112; 97116; 97163-GP; 97530; 99285; C9113; J0696; J1200; J1815; J2250; J2405; J3010; J7030; P9016; Q0092

== ENCOUNTER 2022-06-29 20:10 | Observation (INO) | payer MEDICARE, OTHER ==
[~2022-06-29] VITALS: Ht 162.6 cm; Wt 49.4 kg
[~2022-06-29 20:10] MED LIST: AMLO-3 PO; ATOR10TA PO; FER325 PO; LACT10SO11 PO
[2022-06-29 20:14] VITALS: BP 109/49
--- NOTE | 2022-06-29 20:16 | NUR ---
PT ANGIE BLS. TAKEN TO BED 8
--- NOTE | 2022-06-29 20:30 | NUR ---
Patient being evaluated by physician at bedside.
--- NOTE | 2022-06-29 20:34 | NUR ---
Dr. Ruggiero examining patient.
[2022-06-29] MEDS ORDERED: NACL 0.9% 1,000 ML IV ONE (20:40)
--- NOTE | 2022-06-29 20:48 | NUR ---
LAB AT BEDSIDE
[2022-06-29 21:02] LABS: BASOPHILS % (AUTO) 0.6 % (0.0-2.0); EOSINOPHILS # (AUTO) 0.2 K/uL (0-0.4); EOSINOPHILS % (AUTO) 3.2 % (0.0-4.0); HEMATOCRIT 35.6 % (36-48); HEMOGLOBIN 11.8 g/dL (12.0-16.0); LYMPHOCYTES # (AUTO) 1.3 K/uL (2.5-16.5); LYMPHOCYTES % (AUTO) 17.9 % (20.5-51.1); MEAN CORPUSCULAR HEMOGLOBIN 31 pg (27-31); MEAN CORPUSCULAR HGB CONC 33 g/dL (33-37); MEAN CORPUSCULAR VOLUME 92.5 fL (80-94); MONOCYTES # (AUTO) 0.4 K/uL (0.8-1.0); MONOCYTES % (AUTO) 5.3 % (1.7-9.3); NEUTROPHILS # (AUTO) 5.3 K/uL (1.8-7.7); PLATELET COUNT (AUTO) 276 K/uL (140-450); RED BLOOD CELL COUNT(AUTO) 3.85 MIL/uL (4.20-5.40); RED CELL DISTRIBUTION WIDTH 14.4 % (11.6-13.7); WHITE BLOOD COUNT (AUTO) 7.3 K/uL (4.8-10.8)
--- NOTE | 2022-06-29 21:14 | NUR ---
PT TO CT VIA OTIS
[2022-06-29 21:35] LABS: ALBUMIN 2.9 g/dL (3.4-5.0); ANION GAP 13.7 (8-16); ASPARTATE AMINOTRANSFERASE 19 U/L (15-37); CARBON DIOXIDE 24.1 mmol/L (21-32); CHLORIDE 105 mmol/L (98-107); CREATININE 1.1 mg/dL (0.6-1.3); GFR ARICAN-AMERICAN 64 mL/min (>90); GLUCOSE 153 mg/dL (74-106); POTASSIUM 3.8 mmol/L (3.5-5.1); SODIUM SERUM 139 mmol/L (136-145); THYROID STIMULATING HORMONE 3.28 uIU/mL (0.34-3.74); TOTAL BILIRUBIN 0.3 mg/dL (0.0-1.0); UREA NITROGEN, BLOOD 29 mg/dL (7-18)
[2022-06-29 22:58] LABS: APPEARANCE,URINE CLEAR (CLEAR); BILIRUBIN,URINE NEGATIVE (NEGATIVE); BLOOD, URINE NEGATIVE (NEGATIVE); COLOR,URINE YELLOW (YELLOW); LEUKOCYTE ESTERASE ,URINE NEGATIVE (NEGATIVE); NITRITE, URINE NEGATIVE (NEGATIVE); UGLUCOSE NEGATIVE (NEGATIVE)
--- NOTE | 2022-06-30 01:11 | NUR ---
attempted to road test patient at this time with failed attempt. Dr. Fan made aware. sts will admit.
[2022-06-30] MEDS ORDERED: NACL 0.9% 1,000 ML IV ONE ×2 (01:20→01:45)
--- NOTE | 2022-06-30 02:09 | NUR ---
Patient will be admitted to care of [facility]. Admited to [facility]. Will go to room 106A. Belongings list completed. Report to JAMES TAFOYA.
--- NOTE | 2022-06-30 02:40 | NUR ---
PT WAS ADMITTED TO [facility] FROM [facility] WITH DIAGNOSIS OF DEHYDRATION AND GEN. WEAKNESS. PT IS AOX3, BED BOUND AND ABLE TO FOLLOW COMMANDS. PT IS ON ROOM AIR AND HAS IV ON RIGHT WRIST WRIST GAUGE 24 AND LEFT WRIST GAUGE 22 SALINE LOCK. PT DENIES PAIN AT THIS TIME. NO S/S OF RESPIRATORY DISTRESS NOTED. ALL SAFETY MEASURES IMPLEMENTED. BED IN LOW POSITION, BED WHEELS ON LOCK AND CALL LIGHT WITHIN REACH.
--- NOTE | 2022-06-30 03:18 | NUR ---
NOTIFIED DR. NGUYEN FOR PT'S DIET AND CODE STATUS. Carolyn NGUYEN ORDERED REGULAR DIET AND FULL CODE STATUS FOR THE PT.
[2022-06-30 04:00] VITALS: BP 150/51
--- NOTE | 2022-06-30 07:30 | NUR ---
PT IS STABLE. ENDORSED PT TO MORNING SHIFT NURSE FOR CONTINUITY OF CARE.
--- NOTE | 2022-06-30 07:31 | NUR ---
RECEIVED REPORT FROM NEWS REPORTER NURSE REGINA FOR CONTINUITY OF CARE. PT SLEEPING, EASILY AROUSABLE BY VERBAL STIMULI/ RESPIRATIONS EVEN AND UNLABORED ON RA. NO DISTRESS NOTED. NO SIGNS OF PAIN. SKIN INTACT, WARM AND DRY TO TOUCH. IV SITE ON RIGHT WRIST G24 INFUSING IVF AND LEFT WRIST G22 SL. CALL LIGHT WITHIN REACH. SAFETY PRECAUTIONS IN PLACE.
[2022-06-30] MEDS ORDERED: POTASSIUM CHLORIDE 10 MEQ TABER PO PRN (07:45)
[2022-06-30] MEDS ORDERED: INSULIN LISPRO SLIDING SCALE 100 UNITS/ML VIAL SUBQ PRN (07:45)
[2022-06-30] MEDS ORDERED: DOCUSATE SODIUM 100 MG GELCAP PO PRN (07:45)
[2022-06-30] MEDS ORDERED: MORPHINE SULFATE 2 MG/ML SYR IVP PRN (07:45)
[2022-06-30] MEDS ORDERED: ACETAMINOPHEN 325 MG TAB PO PRN (07:45)
[2022-06-30] MEDS ORDERED: ZOLPIDEM 10 MG TAB PO PRN (07:45)
[2022-06-30] MEDS ORDERED: MAG SULF 2000 MG/WATER PREMIX 50 ML IV PRN (07:45)
[2022-06-30] MEDS ORDERED: DEXTROSE 50% 50 ML SYR IVP PRN (07:45)
[2022-06-30] MEDS ORDERED: ONDANSETRON 4 MG/2 ML VIAL IVP PRN (07:45)
[2022-06-30] MEDS ORDERED: LORazepam 2 MG/ML VIAL IVP PRN (07:45)
[2022-06-30 08:00] VITALS: BP 154/43
[2022-06-30] MEDS ORDERED: FERROUS SULFATE 325 MG TABEC PO SCH (08:00)
--- NOTE | 2022-06-30 08:00 | NUR ---
Patient's Plan of Care was discussed and reviewed with LADAN: TROY
--- NOTE | 2022-06-30 08:56 | NUR ---
ADMINISTERED DUE MEDS. PT A&O4. PT TEACHING ABOUT MEDS GIVEN. PT VERBALIZED UNDERSTANDING.
[2022-06-30] MEDS ORDERED: amLODIPine 5 MG TAB PO SCH (09:00)
[2022-06-30] MEDS ORDERED: ATORVASTATIN 20 MG TAB PO SCH (09:00)
--- NOTE | 2022-06-30 10:25 | NUR ---
PATIENT HAS BEEN SCREENED AND CATEGORIZED MODERATE NUTRITION RISK. PATIENT WILL BE SEEN WITHIN 3-5 DAYS OF ADMISSION. REVIEWED BY PAUL PENNINGTON RD
[2022-06-30 11:19] VITALS: BP 154/43
[2022-06-30] MEDS ORDERED: BLOOD GLUCOSE MONITORING 1 DEV DEV FS SCH (11:30)
--- NOTE | 2022-06-30 11:48 | NUR ---
BLOOD SUGAR CHECK DONE. SLIDING SCALE INSULIN GIVEN.
[2022-06-30 11:53] VITALS: BP 153/44
--- NOTE | 2022-06-30 13:45 | NUR ---
DISCHARGE PAPERS DISCUSSED WITH THE PT. PT VERBALIZED UNDERSTANDING. PT AWAITING FOR HER FAMILY MEMBER TO PICK HER UP.
--- NOTE | 2022-06-30 15:41 | NUR ---
P.T. NOTES P.T. EVAL COMPLETED; REFER TO EVAL FOR DETAILS.
--- NOTE | 2022-06-30 15:45 | NUR ---
PT DISCHARGED HOME. PT PICKED UP BY FAMILY MEMBER. REMOVED IV CATHETER TIPS INTACT. REMOVED ID WRIST BAND. ALL BELONGINGS TAKEN UPON DC. PT WHEELED TO FRONT LOBBY VIA WHEELCHAIR BY HOSPITAL PHARMACY DIRECTOR AND FAMILY. PT IS IN STABLE CONDITION.
== END 2022-06-30 15:45 | disposition home or self-care (01) ==
LOC: MED 20:10 → MMU 06-30 01:46 → MTU 06-30 01:59
PROVIDERS: ADMIT Family Medicine; ATTEND Family Medicine
DX: R55 Syncope and collapse (principal); Z20.822 Contact with and (suspected) exposure to COVID-19; I10 Essential (primary) hypertension; E11.9 Type 2 diabetes mellitus without complications; I63.9 Cerebral infarction, unspecified; D64.9 Anemia, unspecified; E44.0 Moderate protein-calorie malnutrition; N17.0 Acute kidney failure with tubular necrosis; E86.0 Dehydration; F03.90 Unspecified dementia, unspecified severity, without behavioral disturbance, psychotic disturbance, mood disturbance, and anxiety; Z86.73 Personal history of transient ischemic attack (TIA), and cerebral infarction without residual deficits; Z79.899 Other long term (current) drug therapy
CPT/HCPCS: 36415; 70450; 71045; 80053; 81003; 82140; 82948; 83605; 84443; 84484; 85025; 87081; 87426; 96360; 96361; 96372; 97112; 97116; 97162; 99285; G0378; G0482; J1815; J7030; Q0092